=== PATIENT | male | born 1960 | race Caucasian/White ===

== ENCOUNTER 2017-01-20 16:50 | Emergency (ER) | payer MEDICARE, OTHER ==
[2017-01-20 17:04] VITALS: BP 120/86
--- NOTE | 2017-01-20 17:19 | EDM.PDOC ---
ED HPI GENERAL MEDICAL PROBLEM - General Chief Complaint: Upper Extremity Injury/Pain Stated Complaint: L PINKY FINGER INJURY Time Seen by Provider: 01/20/17 17:00 Source of Information: Reports: Patient History Limitations: Reports: No Limitations - History of Present Illness INITIAL COMMENTS - FREE TEXT/NARRATIVE: 56-year-old male presents for evaluation and treatment of an injury to the left hand fifth finger. Injury occurred about 2 or 3 hours prior to arrival in the ER. Patient was riding horse. He believes that the rains wrapped around his left hand fifth finger and the horse bucked causing the reins to pull on the finger. He reports an obvious deformity at the PIP joint. He reports some numbness to the distal fifth phalanx. No open wounds. Patient is right-handed. Left 5-Little finger Pain Score (Numeric/FACES): 3 - Related Data Allergies Allergy/AdvReac Type Severity Reaction Status Date / Time No Known Allergies Allergy Verified 01/20/17 17:04 Home Meds: Home Meds . [No Known Home Meds] 01/20/17 [History] Review of Systems - Review of Systems Review Of Systems: See Below Musculoskeletal: Reports: Hand Pain (left hand fifth phalnex), Other (deformity to the left hnad 5th finger) Skin: Denies: Wound Neurological: Reports: Numbness (left hand fifth distal phalnex) ED EXAM, GENERAL - Physical Exam Exam: See Below Exam Limited By: No Limitations General Appearance: Alert, WD/WN, No Apparent Distress Respiratory/Chest: No Respiratory Distress Cardiovascular: Normal Peripheral Pulses, Regular Rate, Rhythm Peripheral Pulses: 2+: Radial (L), Radial (R) Extremities: Normal Capillary Refill, Limited Range of Motion (due to deformity) , Other (deformity to the left hand 5th finger at the PIP joint) Neurological: Alert, Oriented, Normal Cognition Psychiatric: Normal Affect, Normal Mood Skin Exam: Warm, Normal Color. No: Wound/Incision ED TRAUMA EXTREMITY PROCEDURES - Joint Reduction Site: Finger (L) (5th finger, PIP joint) Sedation: Digital Block Local Anesthesia - Lidocaine (Xylocaine): 1% Plain Local Anesthetic Volume: 4cc Pre-Procedure NV Status: Normal Post-Procedure NV Status: Normal Technique: Traction/Counter Traction Number of Attempts: 2 Post-Reduction Imaging: Completely Reduced, No Fracture Seen Joint Reduction Complications: No Progress/Comments: patient splinted by nursing staff in an aluminiform splint Course - Vital Signs Last Recorded V/S: Last Vital Signs Temp Pulse 69 01/20/17 17:00 Resp 16 01/20/17 17:00 BP 120/86 01/20/17 17:00 Pulse Ox 95 01/20/17 17:00 - Orders/Labs/Meds Orders: Active Orders 24 hr Category Date Time Status Fingers Fifth Digit Lt F4 [CR] Stat Exams 01/20/17 17:08 Taken Fingers Fifth Digit Lt F4 [CR] Stat Exams 01/20/17 18:17 Ordered Meds: Medications Discontinued Medications Generic Name Dose Route Start Last Admin Trade Name Kirstin PRN Reason Stop Dose Admin Lidocaine HCl 50 ml 01/20/17 17:42 01/20/17 18:06 Xylocaine 1% INJECT 01/20/17 17:43 50 ml ONETIME ONE Administration - Radiology Interpretation Free Text/Narrative:: xray of the 5th phalnex shows dislocation of the left hand 5th finger at the PIP joint. No fractures. post reduction xray shows no fractures. Dislocation has been successfully reduced. - Re-Assessments/Exams Free Text/Narrative Re-Assessment/Exam: 01/20/17 18:27 consent obtained prior to the procedure. Joint was reduced after a digital block. No complications. Patient tolerated procedure well. Pre-and post reduction films show no fractures. I will Have nursing staff place him in an aluminiform splint. Discharge instructions his document. Departure - Departure Time of Disposition: 18:33 Disposition: Home, Self-Care 01 Condition: Good Clinical Impression: Dislocation, finger closed Qualifiers: Encounter type: initial encounter Qualified Code(s): S63.259A - Unspecified dislocation of unspecified finger, initial encounter - Discharge Information Referrals: Darren Roman Jr, MD [Primary Care Provider] - Leon Robertson MD [Physician] - Forms: ED Department Discharge Additional Instructions: Finger splint for the next week. Follow-up with orthopedics if not better in [address] Robertson. Please call [phone] Robertson. [id number] Tylenol and Motrin as needed for pain relief. Ice the finger as needed for swelling. Please return to the ER if your symptoms change or worsen. - My Orders Last 24 Hours: My Active Orders 01/20/17 17:08 Fingers Fifth Digit Lt F4 [CR] Stat 01/20/17 18:17 Fingers Fifth Digit Lt F4 [CR] Stat - Assessment/Plan Last 24 Hours: My Active Orders 01/20/17 17:08 Fingers Fifth Digit Lt F4 [CR] Stat 01/20/17 18:17 Fingers Fifth Digit Lt F4 [CR] Stat
[2017-01-20] MEDS ORDERED: Lidocaine 1% 50 ML MDV INJECT ONE (17:42)
--- NOTE | 2017-01-21 08:39 | CR ---
Left fifth finger: Four views of the left fifth finger were obtained. Comparison: Previous fifth finger exam performed earlier on the same day (5:08 PM) Previous dislocation has been reduced. Alignment of the fifth finger appears anatomic. Soft tissue swelling is identified. No acute fracture is seen. Impression: 1. Previous dislocation has been reduced. 2. Soft tissue swelling remains. No fracture is seen. Diagnostic code #2
--- NOTE | 2017-01-21 08:39 | CR ---
Left fifth finger: Four views of the left fifth finger were obtained. Acute flexion seen within the left fifth finger with dislocation at the PIP joint. No discrete fracture or other abnormality is seen. Impression: 1. Dislocation within the PIP joint of the left fifth finger. Diagnostic code #3
== END 2017-01-20 18:41 | disposition home or self-care (01) ==
LOC: JD.ED 16:50
DX: S63.287A Dislocation of proximal interphalangeal joint of left little finger, initial encounter (principal); X50.9XXA Other and unspecified overexertion or strenuous movements or postures, initial encounter; Y93.52 Activity, horseback riding
CPT/HCPCS: 26770; 64450; 73140-26-F4; 73140-F4; 99283-25

== ENCOUNTER 2022-12-06 07:18 | Emergency (ER) | payer MEDICARE, OTHER ==
[2022-12-06 08:06] LABS: BASOPHILS ABSOLUTE AUTO 0.05 K/mm3 (0.01-0.08); BASOPHILS PERCENT AUTO 0.8 % (0.1-1.2); EOSINOPHILS ABSOLUTE AUTO 0.05 K/mm3 (0.04-0.54); EOSINOPHILS PERCENT AUTO 0.8 (0.8-7.0); HEMATOCRIT 44.7 % (40.1-51.0); IMMATURE GRAN ABSOLUTE AUTO 0.02 K/mm3 (0.00-0.10); IMMATURE GRAN PERCENT AUTO 0.3 % (<=1.0); LYMPHOCYTES ABSOLUTE AUTO 1.97 K/mm3 (1.32-3.57); LYMPHOCYTES PERCENT AUTO 32.1 % (21.8-53.1); MEAN CORPUSCULAR HEMOGLOBIN 30.7 pg (25.7-32.2); MEAN CORPUSCULAR HGB CONC 33.6 g/dl (32.2-35.5); MEAN CORPUSCULAR VOLUME 91.6 fl (79.0-92.2); MEAN PLATELET VOLUME 10.4 fl (9.4-12.3); MONOCYTES ABSOLUTE AUTO 0.47 K/mm3 (0.30-0.82); MONOCYTES PERCENT AUTO 7.7 % (5.3-12.2); NEUTROPHILS ABSOLUTE AUTO 3.57 K/mm3 (1.78-5.38); NEUTROPHILS PERCENT AUTO 58.3 % (34.0-67.9); PLATELET COUNT,PLT 236 K/mm3 (163-337); RED BLOOD CELL COUNT 4.88 M/mm3 (4.63-6.08); WHITE BLOOD CELL COUNT,WBC 6.13 K/mm3 (4.23-9.07)
[2022-12-06 08:19] LABS: INR 1.04; PROTHROMBIN TIME 11.1 SECONDS (9.7-12.0)
[2022-12-06 08:20] LABS: PTT,PARTIAL THROMBOPLSTIN TIME 30.6 SECONDS (21.7-31.4)
[2022-12-06 08:24] LABS: A/G RATIO 1.1 (1-2); ALBUMIN 3.6 g/dl (3.4-5.0); ANION GAP 10.8 (5-15); BILIRUBIN TOTAL 0.6 mg/dL (0.2-1.0); BUN/CREATININE RATIO 13.1 (14-18); CALCIUM 8.9 mg/dL (8.5-10.1); CREATININE 1.3 mg/dL (0.7-1.3); EST CRCL DRUG DOSING (CG) 63.01 mL/min; POTASSIUM,K 3.8 mEq/L (3.5-5.1)
[2022-12-06 10:29] VITALS: BP 129/73; PULSE 61
== END 2022-12-06 10:28 | disposition home or self-care (01) ==
LOC: JD.ED 07:18
DX: M25.561 Pain in right knee (principal); Z96.651 Presence of right artificial knee joint; Z91.018 Allergy to other foods; Z79.01 Long term (current) use of anticoagulants
CPT/HCPCS: 36415; 80053; 85025; 85610; 85730; 93971-26-RT; 93971-RT; 99282; 99284